=== PATIENT | female | born 1950 | race Two or more races ===

== ENCOUNTER → 2017-05-12 | Outpatient (CLI) | payer OTHER ==
[~2017-05-12] MED LIST: CATAFLAM50 MG PO; CLORAZEPATE D3.75 MG PO; COZAAR100 MG; DEPAKOTE ER250 MG PO; KEPPRA1000 MG PO; TOPROL XL25 MG PO
== END | disposition home or self-care (01) ==
LOC: PPH VACUNA 14:52
DX: Z23 Encounter for immunization (principal)

== ENCOUNTER 2018-11-04 12:17 | Outpatient (CLI) | payer OTHER | END 2018-11-04 12:28 | disposition home or self-care (01) | LOC: MAMO-SONO 12:17 | DX: Z12.31 Encounter for screening mammogram for malignant neoplasm of breast (principal) ==

== ENCOUNTER 2018-11-10 11:20 | Outpatient (CLI) | payer OTHER | END 2018-11-10 11:32 | disposition home or self-care (01) | LOC: NUCLEAR 11:20 | DX: M81.0 Age-related osteoporosis without current pathological fracture (principal) ==

== ENCOUNTER → 2019-03-17 | Outpatient (CLI) | payer OTHER | END | disposition home or self-care (01) | LOC: RAD 12:43 | DX: M54.40 Lumbago with sciatica, unspecified side (principal); G89.11 Acute pain due to trauma ==

== ENCOUNTER 2022-05-07 10:15 | Outpatient (CLI) | payer OTHER | END 2022-05-07 10:26 | disposition home or self-care (01) | LOC: MAMO-SONO 10:15 | DX: Z12.31 Encounter for screening mammogram for malignant neoplasm of breast (principal) ==

== ENCOUNTER 2023-02-28 09:57 | Outpatient (CLI) | payer OTHER | END 2023-02-28 10:09 | disposition home or self-care (01) | LOC: MRI 09:57 | PROVIDERS: ATTEND Psychiatry & Neurology Neurology | DX: M50.10 Cervical disc disorder with radiculopathy, unspecified cervical region (principal) | CPT/HCPCS: 72141 ==

== ENCOUNTER 2024-06-08 09:48 | Outpatient (CLI) | payer OTHER | END 2024-06-08 10:02 | disposition home or self-care (01) | LOC: MRI 09:48 | PROVIDERS: ATTEND Orthopaedic Surgery | DX: S86.011A Strain of right Achilles tendon, initial encounter (principal); X58.XXXA Exposure to other specified factors, initial encounter; Y93.9 Activity, unspecified; Y92.9 Unspecified place or not applicable; Y99.9 Unspecified external cause status | CPT/HCPCS: 73721 ==

== ENCOUNTER 2025-03-01 09:45 | Outpatient (CLI) | payer OTHER | END 2025-03-01 09:47 | disposition home or self-care (01) | LOC: NUCLEAR 09:45 | DX: M85.80 Other specified disorders of bone density and structure, unspecified site (principal); M81.0 Age-related osteoporosis without current pathological fracture ==